=== PATIENT | male | born 1940 | race Caucasian/White ===

== ENCOUNTER 2023-02-14 08:04 | Outpatient (CLI) | payer BC ==
[2023-02-14 08:51] LABS: APTT 33 SECONDS (22-32); BASOPHILS # (AUTO) 0.1 X10'3 (0-0.2); EOSINOPHILS # (AUTO) 0.1 X10'3 (0-0.9); EOSINOPHILS % (AUTO) 2.3 % (0-6); HEMATOCRIT 49.3 % (42.0-52.0); HEMOGLOBIN 16.5 g/dl (14.0-17.9); INR 1.1 INR; LYMPHOCYTES # (AUTO) 1.8 X10'3 (1.1-4.8); LYMPHOCYTES % (AUTO) 31.6 % (21-51); MEAN CORPUSCULAR HEMOGLOBIN 31.4 PG (27.0-31.0); MEAN CORPUSCULAR HGB CONC 33.5 g/dL (33.0-36.5); MEAN CORPUSCULAR VOLUME 93.6 FL (78-98); MEAN PLATELET VOLUME 8.3 FL (7.4-10.4); MONOCYTES # (AUTO) 0.7 X10'3 (0-0.9); MONOCYTES % (AUTO) 11.8 % (2-12); NEUTROPHILS % (AUTO) 53.3 % (42-75); PLATELET COUNT 214 X10'3 (140-440); RED BLOOD COUNT 5.26 X10'6 (4.70-6.10); RED CELL DISTRIBUTION WIDTH 14.1 % (11.5-14.5); WHITE BLOOD COUNT 5.6 X10'3 (4.5-11.0)
[2023-02-14 08:59] LABS: ALANINE AMINOTRANSFERASE 20 U/L (12-78); ALBUMIN 3.8 G/DL (3.4-5.0); ALBUMIN/GLOBULIN RATIO 1.1 (1.1-1.5); ALKALINE PHOSPHATASE 78 IU/L (46-116); ANION GAP 3 (8-16); ASPARTATE AMINO TRANSFERASE 19 U/L (10-37); BILIRUBIN,TOTAL 0.6 MG/DL (0.1-1.0); BLOOD UREA NITROGEN 12 MG/DL (7-18); BUN/CREATININE RATIO 11.5 (10.0-20.0); CALCIUM 9.1 MG/DL (8.5-10.1); CHLORIDE 105 MMOL/L (99-107); CREATININE 1.04 MG/DL (0.60-1.10); GLUCOSE 98 MG/DL (70-104); POTASSIUM 4.4 MMOL/L (3.5-5.1); SODIUM 138 MMOL/L (135-145); TOTAL CARBON DIOXIDE 29.7 MMOL/L (24-32); TOTAL PROTEIN 7.2 G/DL (6.4-8.2); eGFR 69 ML/MIN
[2023-02-14] MEDS ORDERED: iohexol 350MG/ML 100ml bottle IV ONE (09:00)
[2023-02-16] MEDS ORDERED: LISI5TAB22 PO (16:54)
[2023-02-16] MEDS ORDERED: ATOR10TA70 PO (16:54)
[2023-02-16] MEDS ORDERED: VIT B-12 (16:54)
[2023-02-16] MEDS ORDERED: PREVAGIN (16:54)
[2023-02-16] MEDS ORDERED: RIVA20TA PO (16:54)
[2023-02-16] MEDS ORDERED: FLO0.4C PO (16:54)
== END 2023-02-14 23:59 | disposition home or self-care (01) ==
LOC: RAD 08:04
PROVIDERS: ATTEND Student in an Organized Health Care Education/Training Program
DX: I25.10 Atherosclerotic heart disease of native coronary artery without angina pectoris (principal); K44.9 Diaphragmatic hernia without obstruction or gangrene; I48.91 Unspecified atrial fibrillation; I48.92 Unspecified atrial flutter; M47.814 Spondylosis without myelopathy or radiculopathy, thoracic region
CPT/HCPCS: 36415; 75572; 80053; 85025; 85610; 85730; J3490; Q9967; 75573

== ENCOUNTER 2023-02-22 07:26 | Inpatient (IN) | payer BC ==
[~2023-02-22] VITALS: Ht 170.2 cm; Wt 75.0 kg
[2023-02-22] VITALS (17 sets, daily range): BP systolic 107–140; BP diastolic 65–99; PULSE 60–88; RESP 11–19; TEMP 97.4; O2SAT 96–100
[2023-02-22] MEDS: vancomycin 1,500 MG in NS 300ml IV soln IV ONE (05:30)
[2023-02-22] MEDS: ringers solution, lacted 1,000 ML IV SCH ×2 (05:30→12:26)
[2023-02-22] MEDS: famotidine 20mg tablet PO ONE (05:30)
[~2023-02-22 07:26] MED LIST: ATOR10TA70 PO; CYAN-34 PO; FLO0.4C PO; LISI5TAB22 PO; PREVAGIN PO; RIVA20TA PO; ondansetron/PF 4mg/2ml inj IV PRN; protamine sulfate 10mg/ml inj. ONE
[2023-02-22] MEDS ORDERED: iohexol 350 MG/ML 50ML vial IV ONE (10:49)
[2023-02-22] MEDS ORDERED: LIDOcaine 1% 30ml preserv. free vial ONE (10:49)
[2023-02-22] MEDS ORDERED: ondansetron/PF 4mg/2ml inj IV PRN (10:50)
[2023-02-22] MEDS ORDERED: proCHLORperazine 10 MG/2 ml inj IV PRN (10:50)
[2023-02-22] MEDS ORDERED: morphine 2 MG/ML inj. syringe IV PRN (10:50)
[2023-02-22] MEDS ORDERED: morphine 4 MG/ML inj SYRINge IV PRN (10:50)
[2023-02-22] MEDS ORDERED: meperidine/PF 25mg/ml syringe IV PRN ×3 (10:50)
[2023-02-22] MEDS ORDERED: midazolam 1 mg/ML 2ml injection ONE (10:59)
[2023-02-22] MEDS ORDERED: fentaNYL/PF 50MCG/1 ML 2ML syringe ONE (10:59)
[2023-02-22] MEDS ORDERED: sevoflurane 250ml liquid IH ONE (10:59)
[2023-02-22] MEDS ORDERED: rocuronium 10mg/ml inj IV ONE (11:02)
[2023-02-22] MEDS ORDERED: heparin 1,000unit/ml 10ml vial 10 ML ONE (11:03)
[2023-02-22] MEDS ORDERED: propofol inj 20 ML IV ONE (11:03)
[2023-02-22] MEDS ORDERED: PERFLUTREN PROTEIN-A MICROSPHR (Optison) 0.22 MG/ML 3ML VIAL IV ONE (11:21)
[2023-02-22] MEDS ORDERED: sugammadex 200mg/2ml injection IV ONE (11:34)
== END 2023-02-22 13:56 | disposition home or self-care (01) | DRG 310 ==
LOC: INTOOBSV 07:26 → OBSVTOIN 07:26 → PAS IN 07:26
PROVIDERS: ADMIT Student in an Organized Health Care Education/Training Program; ATTEND Student in an Organized Health Care Education/Training Program
PROC: 02JA3ZZ Inspection of Heart, Percutaneous Approach (ICD-10-PCS; principal; 2023-02-22 10:59)
DX: I48.91 Unspecified atrial fibrillation (principal); I10 Essential (primary) hypertension; E78.5 Hyperlipidemia, unspecified; K21.9 Gastro-esophageal reflux disease without esophagitis; G20.A1 Parkinson's disease without dyskinesia, without mention of fluctuations; Z79.01 Long term (current) use of anticoagulants; Z88.0 Allergy status to penicillin
CPT/HCPCS: 36415; 71046; 82948; 86885; 86900; 86901; 86920; 87081; 93312; 93325; A4618; A6258; A6449; C1893; G0378; J1644; J2250; J2704; J2720; J3010; J3370; J3490; J7040; J7120; Q9956; Q9967

== ENCOUNTER 2023-03-27 12:03 | Day surgery (SDC) | payer BC ==
[~2023-03-27] VITALS: Ht 170.2 cm; Wt 74.4 kg
[2023-03-27] VITALS (9 sets, daily range): BP systolic 113–138; BP diastolic 79–95; PULSE 67–88; RESP 16; TEMP 98.2; O2SAT 93–99
[~2023-03-27 12:03] MED LIST changes: -ondansetron/PF 4mg/2ml inj IV PRN; -protamine sulfate 10mg/ml inj. ONE
[2023-03-27] MEDS ORDERED: fentaNYL/PF 50MCG/1 ML 2ML syringe IV ONE (12:30)
[2023-03-27] MEDS ORDERED: MIDAZolam 1mg/ml 10ml vial IV ONE (12:30)
[2023-03-27] MEDS ORDERED: APIX5TAB3 PO (12:48)
== END 2023-03-27 15:45 | disposition home or self-care (01) ==
LOC: SSTAY O 12:03
PROVIDERS: ATTEND Student in an Organized Health Care Education/Training Program
DX: I48.91 Unspecified atrial fibrillation (principal); I10 Essential (primary) hypertension; E78.5 Hyperlipidemia, unspecified; I35.9 Nonrheumatic aortic valve disorder, unspecified; G20.C Parkinsonism, unspecified; I37.1 Nonrheumatic pulmonary valve insufficiency; K21.9 Gastro-esophageal reflux disease without esophagitis; Z88.0 Allergy status to penicillin; Z79.899 Other long term (current) drug therapy
CPT/HCPCS: 93312; 93325; J2250; J3010; J7030; A4620